=== PATIENT | female | born 1960 | race Caucasian/White ===

== ENCOUNTER 2018-02-21 14:52 | Emergency (ER) | payer OTHER ==
[~2018-02-21] VITALS: Ht 162.6 cm; Wt 77.1 kg
[2018-02-21 15:08] VITALS: BP 92/42; Ht 162.6 cm; Wt 77.1 kg
== END 2018-02-21 16:54 | disposition home or self-care (01) ==
LOC: ED 14:52
DX: M54.5 Low back pain (principal); M54.2 Cervicalgia; I10 Essential (primary) hypertension; F41.9 Anxiety disorder, unspecified; E78.00 Pure hypercholesterolemia, unspecified; F17.210 Nicotine dependence, cigarettes, uncomplicated; Z88.8 Allergy status to other drugs, medicaments and biological substances; V43.52XA Car driver injured in collision with other type car in traffic accident, initial encounter; Y93.I9 Activity, other involving external motion; Y92.413 State road as the place of occurrence of the external cause; Y99.8 Other external cause status
CPT/HCPCS: J1885

== ENCOUNTER 2018-02-24 17:40 | Observation (INO) | payer OTHER ==
[~2018-02-24] VITALS: Ht 162.6 cm; Wt 79.5 kg
[2018-02-24 18:31] LABS: CALCIUM 8.5 mg/dL (8.5-10.1); CARBON DIOXIDE 20.7 mmol/L (21-32); CHLORIDE SERUM 108 mmol/L (98-107); CREATININE SERUM 0.8 mg/dL (0.6-1.0); GFR1 > 60 mL/min; GLUCOSE SERUM 81 mg/dL (74-106); POTASSIUM SERUM 4.1 mmol/L (3.5-5.1); SODIUM SERUM 139 mmol/L (136-145)
[2018-02-24 18:35] LABS: BASOPHIL % 0.4 % (0-2); PLATELET COUNT 190 x10^3mcL (130-400); RED CELL DISTRIBUTION WIDTH 14.3 % (11.5-14.5)
[2018-02-24] MEDS ORDERED: ATENOLOL25 MG PO (19:16)
[2018-02-24] MEDS ORDERED: BUSPIRONE HCL5 MG PO (19:16)
[2018-02-24] MEDS ORDERED: NEU300 PO (19:17)
[2018-02-24] MEDS ORDERED: ATORVASTATIN CA10 M1 PO (19:17)
[2018-02-24] MEDS ORDERED: LEXAPRO5 M1 PO (19:17)
[2018-02-24] MEDS ORDERED: TRAZODONE50 M1 PO (19:17)
[2018-02-24 20:36] VITALS: BP 100/78
[2018-02-25 05:56] VITALS: BP 128/73
[2018-02-25 06:19] LABS: CALCIUM 8.3 mg/dL (8.5-10.1); CARBON DIOXIDE 24.2 mmol/L (21-32); CHLORIDE SERUM 114 mmol/L (98-107); CREATININE SERUM 0.8 mg/dL (0.6-1.0); GFR1 > 60 mL/min; GLUCOSE SERUM 89 mg/dL (74-106); MAGNESIUM 1.8 mg/dL (1.8-2.4); POTASSIUM SERUM 3.9 mmol/L (3.5-5.1); SODIUM SERUM 145 mmol/L (136-145)
[2018-02-25 06:22] LABS: BASOPHIL % 0.2 % (0-2); PLATELET COUNT 182 x10^3mcL (130-400)
[2018-02-25 06:55] LABS: RED CELL DISTRIBUTION WIDTH 14.6 % (11.5-14.5)
[2018-02-25 09:15] VITALS: BP 107/54
[2018-02-25 12:50] VITALS: BP 133/70
[2018-02-25 16:09] VITALS: BP 143/79
[2018-02-25 20:06] VITALS: BP 143/79
== END 2018-02-25 20:35 | disposition home or self-care (01) | DRG 54 ==
LOC: ED 17:40 → DU 19:30
PROVIDERS: Emergency Medicine; Internal Medicine Pulmonary Disease
DX: F07.81 Postconcussional syndrome (principal); F17.200 Nicotine dependence, unspecified, uncomplicated; F32.9 Major depressive disorder, single episode, unspecified; I10 Essential (primary) hypertension; V49.9XXS Car occupant (driver) (passenger) injured in unspecified traffic accident, sequela; F41.9 Anxiety disorder, unspecified
CPT/HCPCS: 86431; 99406; G0378; J3010; J7030; Q0092

== ENCOUNTER 2018-03-23 13:27 | Emergency (ER) | payer OTHER ==
[~2018-03-23] VITALS: Ht 162.6 cm; Wt 80.3 kg
[~2018-03-23 13:27] MED LIST: ATENOLOL25 MG PO; ATORVASTATIN CA10 M1 PO; BUSPIRONE HCL5 MG PO; LEXAPRO5 M1 PO; NEU300 PO; TRAZODONE50 M1 PO
[2018-03-23 13:31] VITALS: BP 146/90; Ht 162.6 cm; Wt 80.3 kg
== END 2018-03-23 14:43 | disposition home or self-care (01) ==
LOC: ED 13:27
DX: M53.3 Sacrococcygeal disorders, not elsewhere classified (principal); F41.9 Anxiety disorder, unspecified; E78.00 Pure hypercholesterolemia, unspecified; Z90.49 Acquired absence of other specified parts of digestive tract; Z90.89 Acquired absence of other organs; Z90.710 Acquired absence of both cervix and uterus

== ENCOUNTER 2018-04-02 06:39 | Emergency (ER) | payer OTHER ==
[~2018-04-02] VITALS: Ht 162.6 cm; Wt 79.0 kg
[2018-04-02 06:44] VITALS: BP 139/90; Ht 162.6 cm; Wt 79.0 kg
== END 2018-04-02 07:48 | disposition home or self-care (01) ==
LOC: ED 06:39
DX: M79.671 Pain in right foot (principal); I10 Essential (primary) hypertension; F41.9 Anxiety disorder, unspecified; E78.00 Pure hypercholesterolemia, unspecified; Z90.49 Acquired absence of other specified parts of digestive tract; Z88.8 Allergy status to other drugs, medicaments and biological substances; Z90.89 Acquired absence of other organs; Z90.710 Acquired absence of both cervix and uterus
CPT/HCPCS: Q0092

== ENCOUNTER 2018-04-04 08:44 | Emergency (ER) | payer OTHER ==
[~2018-04-04] VITALS: Ht 162.6 cm; Wt 78.9 kg
[2018-04-04 10:00] VITALS: BP 131/88
== END 2018-04-04 10:00 | disposition home or self-care (01) ==
LOC: ED 08:44
DX: S90.851D Superficial foreign body, right foot, subsequent encounter (principal); M79.671 Pain in right foot; I10 Essential (primary) hypertension; F41.9 Anxiety disorder, unspecified; E78.00 Pure hypercholesterolemia, unspecified; Z90.49 Acquired absence of other specified parts of digestive tract; Z88.8 Allergy status to other drugs, medicaments and biological substances; Z90.89 Acquired absence of other organs; Z90.710 Acquired absence of both cervix and uterus; X58.XXXD Exposure to other specified factors, subsequent encounter

== ENCOUNTER 2018-04-12 10:54 | Emergency (ER) | payer OTHER ==
[~2018-04-12] VITALS: Ht 162.6 cm; Wt 82.1 kg
[2018-04-12 11:07] VITALS: Ht 162.6 cm; Wt 82.1 kg
[2018-04-12 13:27] VITALS: BP 129/77
== END 2018-04-12 13:27 | disposition home or self-care (01) ==
LOC: ED 10:54
DX: M77.8 Other enthesopathies, not elsewhere classified (principal); I10 Essential (primary) hypertension; F41.9 Anxiety disorder, unspecified; E78.00 Pure hypercholesterolemia, unspecified; Z90.89 Acquired absence of other organs; Z90.49 Acquired absence of other specified parts of digestive tract; Z88.8 Allergy status to other drugs, medicaments and biological substances
CPT/HCPCS: J1885; J2270; Q0092

== ENCOUNTER 2018-04-22 07:19 | Emergency (ER) | payer OTHER ==
[~2018-04-22] VITALS: Ht 162.6 cm; Wt 80.3 kg
[2018-04-22 08:18] LABS: BASOPHIL % 0.5 % (0-2); PLATELET COUNT 226 x10^3mcL (130-400); RED CELL DISTRIBUTION WIDTH 13.4 % (11.5-14.5)
[2018-04-22 08:21] LABS: CALCIUM 8.7 mg/dL (8.5-10.1); CARBON DIOXIDE 20.2 mmol/L (21-32); CHLORIDE SERUM 109 mmol/L (98-107); CREATININE SERUM 0.9 mg/dL (0.6-1.0); GFR1 > 60 mL/min; GLUCOSE SERUM 106 mg/dL (74-106); POTASSIUM SERUM 3.9 mmol/L (3.5-5.1); SODIUM SERUM 140 mmol/L (136-145)
[2018-04-22 09:06] VITALS: BP 140/86
== END 2018-04-22 09:06 | disposition home or self-care (01) ==
LOC: ED 07:19
PROVIDERS: Emergency Medicine
DX: M25.531 Pain in right wrist (principal); F41.9 Anxiety disorder, unspecified; E78.00 Pure hypercholesterolemia, unspecified; Z88.8 Allergy status to other drugs, medicaments and biological substances; Z90.49 Acquired absence of other specified parts of digestive tract; Z90.89 Acquired absence of other organs; Z90.710 Acquired absence of both cervix and uterus; Z98.890 Other specified postprocedural states; X50.3XXA Overexertion from repetitive movements, initial encounter; Y93.89 Activity, other specified; Y92.89 Other specified places as the place of occurrence of the external cause; Y99.8 Other external cause status
CPT/HCPCS: 36415; J1885; Q0092

== ENCOUNTER 2018-05-25 10:03 | Emergency (ER) | payer OTHER ==
[~2018-05-25] VITALS: Ht 162.6 cm; Wt 83.5 kg
[2018-05-25 10:15] VITALS: Ht 162.6 cm; Wt 83.5 kg
[2018-05-25 14:26] VITALS: BP 138/84
== END 2018-05-25 14:26 | disposition home or self-care (01) ==
LOC: ED 10:03
DX: M25.562 Pain in left knee (principal); M25.561 Pain in right knee; I10 Essential (primary) hypertension; F41.9 Anxiety disorder, unspecified; E78.00 Pure hypercholesterolemia, unspecified; Z90.49 Acquired absence of other specified parts of digestive tract; Z90.89 Acquired absence of other organs; Z90.710 Acquired absence of both cervix and uterus; Z88.8 Allergy status to other drugs, medicaments and biological substances; Z59.0 Homelessness
CPT/HCPCS: J1885; Q0092

== ENCOUNTER 2018-09-28 19:08 | Emergency (ER) | payer OTHER ==
[~2018-09-28] VITALS: Ht 162.6 cm; Wt 83.9 kg
[2018-09-28 20:07] VITALS: Ht 162.6 cm; Wt 83.9 kg
[2018-09-28 21:51] LABS: BASOPHIL % 0.4 % (0-2); PLATELET COUNT 218 x10^3mcL (130-400); RED CELL DISTRIBUTION WIDTH 12.5 % (11.5-14.5)
[2018-09-28 22:22] LABS: CALCIUM 9.1 mg/dL (8.5-10.1); CHLORIDE SERUM 103 mmol/L (98-107); CREATININE SERUM 0.9 mg/dL (0.6-1.0); GFR1 > 60 mL/min; GLUCOSE SERUM 88 mg/dL (74-106); POTASSIUM SERUM 3.7 mmol/L (3.5-5.1); SODIUM SERUM 140 mmol/L (136-145)
[2018-09-28 22:26] LABS: ALBUMIN 4.5 g/dL (3.4-5.0); ALKALINE PHOSPHATASE 83 U/L (46-116); ALT/SGPT 31 U/L (14-59); AST/SGOT 21 U/L (15-37); BILIRUBIN TOTAL 0.36 mg/dL (0.20-1.00); TOTAL PROTEIN, SERUM 7.2 g/dL (6.4-8.2)
[2018-09-28 23:46] VITALS: BP 160/109
== END 2018-09-28 23:46 | disposition home or self-care (01) ==
LOC: ED 19:08
PROVIDERS: Emergency Medicine
DX: I10 Essential (primary) hypertension (principal); R07.89 Other chest pain; M54.9 Dorsalgia, unspecified; F41.9 Anxiety disorder, unspecified; E78.00 Pure hypercholesterolemia, unspecified; Z90.49 Acquired absence of other specified parts of digestive tract; Z88.8 Allergy status to other drugs, medicaments and biological substances; Z90.89 Acquired absence of other organs; Z90.710 Acquired absence of both cervix and uterus
CPT/HCPCS: 36415; 83880; J1885; J7030; Q0092

== ENCOUNTER 2018-11-27 16:14 | Emergency (ER) | payer OTHER ==
[~2018-11-27] VITALS: Ht 162.6 cm; Wt 83.5 kg
[2018-11-27 16:30] VITALS: Ht 162.6 cm; Wt 83.5 kg
[2018-11-27 18:06] VITALS: BP 141/84
== END 2018-11-27 18:06 | disposition home or self-care (01) ==
LOC: ED 16:14
DX: S39.012A Strain of muscle, fascia and tendon of lower back, initial encounter (principal); I10 Essential (primary) hypertension; E78.00 Pure hypercholesterolemia, unspecified; F41.9 Anxiety disorder, unspecified; Z96.22 Myringotomy tube(s) status; Z91.041 Radiographic dye allergy status; Z88.8 Allergy status to other drugs, medicaments and biological substances; X50.0XXA Overexertion from strenuous movement or load, initial encounter; Y93.89 Activity, other specified; Y92.89 Other specified places as the place of occurrence of the external cause; Y99.8 Other external cause status
CPT/HCPCS: J1885

== ENCOUNTER 2018-12-03 11:23 | Emergency (ER) | payer OTHER ==
[~2018-12-03] VITALS: Ht 162.6 cm; Wt 84.4 kg
[2018-12-03 11:29] VITALS: Ht 162.6 cm; Wt 84.4 kg
[2018-12-03 12:15] LABS: BASOPHIL % 0.5 % (0-2); PLATELET COUNT 208 x10^3mcL (130-400)
[2018-12-03 12:58] LABS: CALCIUM 9.2 mg/dL (8.5-10.1); CARBON DIOXIDE 25.5 mmol/L (21-32); CHLORIDE SERUM 109 mmol/L (98-107); GFR1 > 60 mL/min; GLUCOSE SERUM 97 mg/dL (74-106); POTASSIUM SERUM 4.7 mmol/L (3.5-5.1); SODIUM SERUM 143 mmol/L (136-145)
[2018-12-03 13:03] LABS: ALBUMIN 3.9 g/dL (3.4-5.0); ALKALINE PHOSPHATASE 79 U/L (46-116); ALT/SGPT 31 U/L (14-59); AST/SGOT 18 U/L (15-37); BILIRUBIN TOTAL 0.5 mg/dL (0.20-1.00); TOTAL PROTEIN, SERUM 6.2 g/dL (6.4-8.2)
[2018-12-03 14:20] LABS: AMPHETAMINE QUAL UR NONE DETECTED (See below)
[2018-12-03 15:22] VITALS: BP 138/75
== END 2018-12-03 15:22 | disposition home or self-care (01) ==
LOC: ED 11:23
PROVIDERS: Emergency Medicine
DX: R07.89 Other chest pain (principal); F17.210 Nicotine dependence, cigarettes, uncomplicated; M54.9 Dorsalgia, unspecified; F41.9 Anxiety disorder, unspecified; E78.00 Pure hypercholesterolemia, unspecified; Z98.890 Other specified postprocedural states
CPT/HCPCS: 85378; 99406; J1885; J7030

== ENCOUNTER 2019-02-23 16:30 | Emergency (ER) | payer BC, OTHER ==
[~2019-02-23] VITALS: Ht 162.6 cm; Wt 83.5 kg
[2019-02-23 16:31] VITALS: Ht 162.6 cm; Wt 83.5 kg
[2019-02-23 20:59] VITALS: BP 140/92
== END 2019-02-23 20:59 | disposition home or self-care (01) ==
LOC: ED 16:30
DX: M54.6 Pain in thoracic spine (principal); M54.5 Low back pain; I10 Essential (primary) hypertension; F41.9 Anxiety disorder, unspecified; E78.00 Pure hypercholesterolemia, unspecified; Z88.8 Allergy status to other drugs, medicaments and biological substances; Z98.890 Other specified postprocedural states
CPT/HCPCS: 72072; J1885

== ENCOUNTER 2019-03-29 05:28 | Emergency (ER) | payer BC, OTHER ==
[~2019-03-29] VITALS: Ht 162.6 cm; Wt 79.8 kg
[2019-03-29 05:34] VITALS: Ht 162.6 cm; Wt 79.8 kg
[2019-03-29 07:11] VITALS: BP 125/80
== END 2019-03-29 07:11 | disposition home or self-care (01) ==
LOC: ED 05:28
DX: F41.9 Anxiety disorder, unspecified (principal); I10 Essential (primary) hypertension; E78.00 Pure hypercholesterolemia, unspecified; Z88.8 Allergy status to other drugs, medicaments and biological substances

== ENCOUNTER 2019-05-24 06:26 | Inpatient (IN) | payer BC, OTHER ==
[~2019-05-24] VITALS: Ht 162.6 cm; Wt 81.2 kg
[2019-05-24 08:15] LABS: BASOPHIL % 0.5 % (0-2); PLATELET COUNT 224 x10^3mcL (130-400); RED CELL DISTRIBUTION WIDTH 13.1 % (11.5-14.5)
[2019-05-24 08:26] LABS: CALCIUM 8.9 mg/dL (8.5-10.1); CARBON DIOXIDE 27.9 mmol/L (21-32); POTASSIUM SERUM 4.7 mmol/L (3.5-5.1)
[2019-05-24 08:31] LABS: ALBUMIN 3.9 g/dL (3.4-5.0); BILIRUBIN TOTAL 0.3 mg/dL (0.20-1.00); TOTAL PROTEIN, SERUM 6.8 g/dL (6.4-8.2)
[2019-05-24] MEDS ORDERED: LIPITOR40 MG (11:11)
[2019-05-24] MEDS ORDERED: ATENOLOL50 MG (11:11)
[2019-05-24] MEDS ORDERED: TRAZODONE50 M1 (11:11)
[2019-05-24] MEDS ORDERED: BUSPIRONE HCL5 MG (11:11)
[2019-05-24 12:32] VITALS: BP 133/71
[2019-05-24 17:40] VITALS: BP 125/71
[2019-05-24 22:23] VITALS: BP 113/66
[2019-05-25 05:12] VITALS: BP 133/79
[2019-05-25 06:12] LABS: BASOPHIL % 0.6 % (0-2); PLATELET COUNT 213 x10^3mcL (130-400); RED CELL DISTRIBUTION WIDTH 12.7 % (11.5-14.5)
[2019-05-25 06:37] LABS: CALCIUM 8.9 mg/dL (8.5-10.1); CARBON DIOXIDE 29.9 mmol/L (21-32); CHLORIDE SERUM 103 mmol/L (98-107); CREATININE SERUM 0.8 mg/dL (0.6-1.0); GFR1 > 60 mL/min; GLUCOSE SERUM 100 mg/dL (74-106); POTASSIUM SERUM 4.2 mmol/L (3.5-5.1); SODIUM SERUM 138 mmol/L (136-145)
[2019-05-25 08:07] VITALS: BP 128/75
[2019-05-25 11:17] VITALS: BP 108/65
[2019-05-25 13:21] VITALS: BP 108/65
== END 2019-05-25 14:33 | disposition home or self-care (01) | DRG 313 ==
LOC: ED 06:26 → DU 10:56
PROVIDERS: Emergency Medicine; ADMIT General Practice
DX: R07.89 Other chest pain (principal); I10 Essential (primary) hypertension; F41.9 Anxiety disorder, unspecified; E78.00 Pure hypercholesterolemia, unspecified; F17.210 Nicotine dependence, cigarettes, uncomplicated; E78.5 Hyperlipidemia, unspecified; Z91.041 Radiographic dye allergy status; Z88.8 Allergy status to other drugs, medicaments and biological substances; Z71.6 Tobacco abuse counseling
CPT/HCPCS: 99406; C9113; G0378; Q0092

== ENCOUNTER 2019-12-12 15:32 | Emergency (ER) | payer BC, SELFPAY ==
[~2019-12-12] VITALS: Ht 162.6 cm; Wt 77.1 kg
[2019-12-12 15:32] VITALS: Ht 162.6 cm; Wt 77.1 kg
[~2019-12-12 15:32] MED LIST changes: +ATENOLOL50 MG; +BUSPIRONE HCL5 MG; +LIPITOR40 MG; +TRAZODONE50 M1
[2019-12-12 20:05] LABS: BASOPHIL % 0.4 % (0-2); PLATELET COUNT 191 x10^3mcL (130-400); RED CELL DISTRIBUTION WIDTH 12.3 % (11.5-14.5)
[2019-12-12 20:19] LABS: CALCIUM 8.4 mg/dL (8.5-10.1); CREATININE SERUM 1.1 mg/dL (0.6-1.0); POTASSIUM SERUM 3.8 mmol/L (3.5-5.1)
[2019-12-12 20:24] LABS: ALBUMIN 3.5 g/dL (3.4-5.0); BILIRUBIN TOTAL 0.3 mg/dL (0.20-1.00)
[2019-12-12 20:26] LABS: TOTAL PROTEIN, SERUM 6.1 g/dL (6.4-8.2)
[2019-12-12 23:02] VITALS: BP 134/75
== END 2019-12-12 23:02 | disposition home or self-care (01) ==
LOC: ED 15:32
PROVIDERS: Emergency Medicine
DX: R07.89 Other chest pain (principal); M25.551 Pain in right hip; R06.02 Shortness of breath; M25.552 Pain in left hip; I10 Essential (primary) hypertension; E78.00 Pure hypercholesterolemia, unspecified; F17.210 Nicotine dependence, cigarettes, uncomplicated; Z20.828 Contact with and (suspected) exposure to other viral communicable diseases; Z88.8 Allergy status to other drugs, medicaments and biological substances
CPT/HCPCS: 36600; 99406; Q0092; U0003-CS